=== PATIENT | female | born 1950 | race Caucasian/White ===

== ENCOUNTER → 2023-08-10 | Outpatient (CLI) | payer BC ==
--- NOTE | 2023-08-10 11:46 | BD ---
EXAMINATION TYPE: Axial Bone Density DATE OF EXAM: 08/10/2023 CLINICAL HISTORY: 73 years old Female. ICD-10 CODE: Z78.0 ASYMPTOMATIC MENOPAUSAL WITHOUT HRT Height: 61 Weight: 167 FRAX RISK QUESTIONS: Alcohol (3 or more units per day): no Family History (Parent hip fracture): no Glucocorticoids (More than 3mos): no (Ex: prednisone, prednisolone, methylprednisolone, dexamethasone, and hydrocortisone). History of Fracture in Adulthood: yes Secondary Osteoporosis: 1. Type 1 Diabetes: no 2. Hyperthyroidism: no 3. Menopause before 45: no 4. Malnutrition: no 5. Chronic liver disease: no Rheumatoid Arthritis: no Current Tobacco Use: no RISK FACTORS HISTORY OF: History of Wrist Fracture: right When: 2017 Surgery to Spine/Hip(right/left)/Wrist (right/left): right wrist When: 2017 EXAM MEASUREMENTS: Bone mineral densitometry was performed using the Plaid System. Bone mineral density as measured about the Lumbar spine is: ----- L1-L4(G/cm2): 1.106 T Score Values are as follows: ----- L1: 0.1 ----- L2: -1.3 ----- L3: -0.5 ----- L4: -0.8 ----- L1-L4: -0.6 Z Score Values are as follows: ----- L1: 1.4 ----- L2: 0.0 ----- L3: 0.8 ----- L4: 0.6 ----- L1-L4: 0.7 Bone mineral density : baseline Bone mineral density about the R hip (g/cm2): 0.922 Bone mineral density about the L hip (g/cm2): 0.841 T Score values are as follows: -----R Neck: -1.7 -----L Neck: -1.8 -----R Total: -0.7 -----L Total: -1.3 Z Score values are as follows: -----R Neck: -0.1 -----L Neck: -0.3 -----R Total: 0.6 -----L Total: 0.0 Bone mineral density : baseline FRAX%s: The graph provided illustrates a 17.4% chance for a major osteoporotic fx and a 3.2% chance f or the hips probability for fx in 10 years time. IMPRESSION: Osteopenia (T Score between -2.5 and -1). There is slightly increased risk of fracture and the patient may be considered for treatment. Re-Screen 2-5 years. NOTE: T-SCORE=SD OF THE YOUNG ADULT MEAN.
--- NOTE | 2023-08-11 14:20 | MM ---
Reason for Exam: Screening (asymptomatic). Patient History: Menarche at age 13. First Full-Term at age 27. Hysterectomy at age 50. Postmenopausal. Risk Values: Ada 5 year model risk: 2.0%. NCI Lifetime model risk: 5.1%. Prior Study Comparison: No prior studies available for comparison. Tissue Density: The breasts are heterogeneously dense, which may obscure small masses. Findings: Analyzed By CAD. There is no suspicious group of microcalcifications or new suspicious mass in either breast. Overall Assessment: Benign, BI-RAD 2 Management: Screening Mammogram of both breasts in 1 year. . Patient should continue monthly self-breast exams. A clinical breast exam by your physician is recommended on an annual basis. This exam should not preclude additional follow-up of suspicious palpable abnormalities. Note on Ada scores and lifetime risk: 1. A Ada score greater than 3% is considered moderate risk. If this is the case, consider specialist referral to assess eligibility for a risk reducing agent. 2. If overall lifetime risk for the development of breast cancer is 20% or higher, the patient may qualify for future screening with alternating mammogram and breast MRI. Electronically signed and approved by: Bebeto Ortiz M.D. Radiologis
== END | disposition home or self-care (01) ==
LOC: RADMAMWWP 07:37
PROVIDERS: ATTEND Family Medicine
DX: Z12.31 Encounter for screening mammogram for malignant neoplasm of breast (principal); M85.89 Other specified disorders of bone density and structure, multiple sites; Z78.0 Asymptomatic menopausal state
CPT/HCPCS: 77063; 77067; 77080

== ENCOUNTER → 2023-08-19 | Outpatient (CLI) | payer BC ==
--- NOTE | 2023-08-20 06:48 | CA ---
Transthoracic Echo Report Name: Libby Wilkinson Age: 73 Gender: F : 1950 Exam Date: 08/19/2023 13:00 Exam Location: [facility] Ht (in): 61 Wt (lb): 160 Ordering Physician: Dia, Physician Attending/Referring Phys: Braeden Valentin Fur Dry Cleaner Procedure CPT: Indications: I25.10 ATHSCL HEART DISEASE OF [place] CORONARY ART Cardiac Hx: Technical Quality: Fair Contrast 1: Total Dose (mL): Contrast 2: Total Dose (mL): MEASUREMENTS (Male / Female) Normal Values 2D ECHO LV Diastolic Diameter PLAX 4.1 cm 4.2 - 5.9 / 3.9 - 5.3 cm LV Systolic Diameter PLAX 2.9 cm IVS Diastolic Thickness 1.1 cm 0.6 - 1.0 / 0.6 - 0.9 cm LVPW Diastolic Thickness 0.9 cm 0.6 - 1.0 / 0.6 - 0.9 cm LV Relative Wall Thickness 0.5 RV Internal Dim ED PLAX 2.7 cm LV Diastolic Volume MOD BP 63.1 cm??? 67 - 155 / 56 - 104 cm??? LV Systolic Volume MOD BP 40.1 cm??? 22 - 58 / 19 - 49 cm??? LV Ejection Fraction MOD BP 36.5 % >= 55 % LV Cardiac Index MOD BP 884.7 cm???/min???m??? LV Diastolic Volume MOD 4C 72.4 cm??? LV Systolic Volume MOD 4C 72.3 cm??? LV Ejection Fraction MOD 4C 0.0 % LV Cardiac Index MOD 4C 1.0 cm???/min???m??? LV Diastolic Length 4C 6.5 cm LV Systolic Length 4C 6.4 cm LV Diastolic Volume MOD 2C 42.9 cm??? LV Systolic Volume MOD 2C 31.9 cm??? LV Ejection Fraction MOD 2C 25.7 % LV Cardiac Index MOD 2C 423.8 cm???/min???m??? LV Diastolic Length 2C 5.0 cm LV Systolic Length 2C 4.9 cm M-MODE Aortic Root Diameter MM 3.0 cm LA Systolic Diameter MM 3.8 cm LA Ao Ratio MM 1.3 AV Cusp Separation MM 1.7 cm DOPPLER AV Peak Velocity 143.5 cm/s AV Peak Gradient 8.2 mmHg AV Mean Velocity 98.3 cm/s AV Mean Gradient 4.3 mmHg AV Velocity Time Integral 32.2 cm AI Peak Velocity 446.1 cm/s AI Peak Gradient 79.6 mmHg AI Pressure Half Time 263.1 ms LVOT Peak Velocity 130.5 cm/s LVOT Peak Gradient 6.8 mmHg LVOT Velocity Time Integral 28.3 cm MV Area PHT 5.0 cm??? Mitral E Point Velocity 99.0 cm/s Mitral A Point Velocity 145.1 cm/s Mitral E to A Ratio 0.7 MV Deceleration Time 152.2 ms MV E' Velocity 4.5 cm/s Mitral E to MV E' Ratio 21.8 TR Peak Velocity 182.8 cm/s TR Peak Gradient 13.4 mmHg Right Ventricular Systolic Press 17.5 mmHg FINDINGS Left Ventricle Mildly increased left ventricular wall thickness. Moderately decreased left ventricular ejection fraction. Mild left ventricular dilatation. Apicaal septal, apical anteriorand apical lateral golden are hypokinetic. Left ventricular ejection fraction is estimated at 35-40%. Grade 1 diastolic dysfunction. Right Ventricle Normal right ventricular size and function. Right ventricular systolic pressure within normal limits. Right Atrium Normal right atrial size. Left Atrium Mildly increased left atrial area. Mitral Valve Structurally normal mitral valve. Mitral valve thickened. Mild mitral annular calcification. Xtxn-mq-trhnivec mitral regurgitation. Aortic Valve Trileaflet aortic valve. No aortic stenosis. Mild aortic regurgitation. Tricuspid Valve Structurally normal tricuspid valve. Mild tricuspid regurgitation. Pulmonic Valve Structurally normal pulmonic valve. Trace pulmonic regurgitation. Pericardium No pericardial effusion. Aorta Normal size aortic root and proximal ascending aorta. CONCLUSIONS Impaired LV function with EF between 35-40% with apical and septal hypokinesia [id number]-vp-rpzhmvun mitral regurgitation Previewed by: Dr. Arsenio Owens MD (Electronically Signed) Final Date: 20 Aug 2023 06:47
== END | disposition home or self-care (01) ==
LOC: RADECHMAIN 12:48
PROVIDERS: ATTEND Internal Medicine
DX: I34.0 Nonrheumatic mitral (valve) insufficiency (principal); I51.89 Other ill-defined heart diseases; I25.10 Atherosclerotic heart disease of native coronary artery without angina pectoris; I25.5 Ischemic cardiomyopathy
CPT/HCPCS: 93306

== ENCOUNTER 2024-01-09 13:11 | Emergency (ER) | payer BC ==
[2024-01-09 13:20] VITALS: TEMP 97.6
[2024-01-09] MEDS: MORPHINE SULFATE 4 MG/ML SYRINGE IM STA (13:42)
--- NOTE | 2024-01-09 14:12 | XR ---
EXAMINATION TYPE: XR wrist complete LT DATE OF EXAM: 01/09/2024 2:02 PM CLINICAL INDICATION: Female, 73 years old with history of fall, arm pain; [facility] COMPARISON: None TECHNIQUE: XR wrist complete LT; examined in the Frontal, navicular, lateral, and oblique. FINDINGS/IMPRESSION: 1. Comminuted intra-articular distal radius fracture with dorsal angulation and shortening. There is associated soft tissue swelling. 2. Indeterminate injury to the ulnar styloid process suggested. Correlate with point tenderness. 3. Moderate to severe degeneration changes of the carpal metacarpal joint. [facility], , 01/09/2024 2:09 PM
--- NOTE | 2024-01-09 14:13 | XR ---
EXAMINATION TYPE: XR humerus LT DATE OF EXAM: 01/09/2024 2:02 PM CLINICAL INDICATION: Female, 73 years old with history of fall, arm pain; H COMPARISON: None TECHNIQUE: XR humerus LT examined in frontal and lateral projections. FINDINGS: No evidence of acute osseous pathology, joint dislocation, or soft tissue swelling. The rem aining portions of the visualized chest are unremarkable. IMPRESSION: No acute osseous pathology. [facility], , 01/09/2024 2:10 PM
--- NOTE | 2024-01-09 14:20 | XR ---
EXAMINATION TYPE: XR elbow complete LT DATE OF EXAM: 01/09/2024 2:02 PM CLINICAL INDICATION: Female, 73 years old with history of fall, arm pain; H COMPARISON: Humerus radiograph same day. TECHNIQUE: XR elbow complete LT; elbow was examined in AP, lateral, and oblique projections. FINDINGS/IMPRESSION: Posterior dislocation of the ulna better appreciated on elbow radiographs. No fracture definitely vis ualized. Consider CT if there is concern for fracture. [facility], , 01/09/2024 2:18 PM
[2024-01-09] MEDS: PROPOFOL 10 MG/ML 20 ML VIAL IV ONE ×2 (15:29)
[2024-01-09 16:08] VITALS: RESP 18
--- NOTE | 2024-01-09 16:08 | XR ---
EXAMINATION TYPE: XR wrist limited LT DATE OF EXAM: 01/09/2024 4:00 PM CLINICAL INDICATION: Female, 73 years old with history of post reduction; [facility] COMPARISON: Same day TECHNIQUE: XR wrist limited LT; examined in the Frontal, navicular, lateral, and oblique. FINDINGS/IMPRESSION: Comminuted fractures of the distal radius remains present with improved anatomic alignment remains sh ortening with some displacement. [facility], , 01/09/2024 4:06 PM
--- NOTE | 2024-01-09 16:09 | XR ---
EXAMINATION TYPE: XR elbow limited LT DATE OF EXAM: 01/09/2024 4:00 PM CLINICAL INDICATION: Female, 73 years old with history of post reduction; COMPARISON: 01/09/2024 TECHNIQUE: XR elbow limited LT; lateral view of the elbow. FINDINGS/IMPRESSION: Improved anatomic alignment of elbow dislocation. No fractures definitively visualized. [facility], , 01/09/2024 4:07 PM
--- NOTE | 2024-01-09 16:17 | ED ---
Upper Extremity HPI - General Chief Complaint: Extremity Injury, Upper Stated Complaint: fall/L wrist injury Time Seen by Provider: 01/09/24 13:20 Source: patient Mode of arrival: ambulatory Limitations: no limitations - History of Present Illness Initial Comments: 73-year-old female presents emergency department after a fall. Patient states that she was cutting grass. She was by a retaining wall that separates her yard from the neighbors. She did not realize how close she was to and fell over backwards on an outstretched left hand. She is right-hand dominant. Patient could not bend her elbow and had deformity to her left wrist. She was able to flag down her who brought her immediately to the hospital. No pain medications were taken. She denies any numbness or tingling in her fingers. She denies any shoulder pain. Patient did not hit her head. Denies neck or back pain. No loss of consciousness. Patient was able to ambulate without difficulty. No other alleviating, precipitating or modifying factors - Related Data Previous Rx's Medication Instructions Recorded HYDROcodone/APAP 5-325MG [Anthony 1 tab PO Q4HR PRN 3 Days #18 tab 01/09/24 5-325] Allergies Allergy/AdvReac Type Severity Reaction Status Date / Time Penicillins AdvReac Rash/Hives Verified 01/09/24 13:20 Review of Systems ROS Statement: Those systems with pertinent positive or pertinent negative responses have been documented in the HPI. ROS Other: All systems not noted in ROS Statement are negative. Past Medical History Past Medical History: CVA/TIA, Pneumonia Past Surgical History: Heart Catheterization With Stent Smoking Status: Never smoker Past Alcohol Use History: None Reported Past Drug Use History: None Reported General Exam Limitations: no limitations General appearance: alert, in no apparent distress Head exam: Present: atraumatic, normocephalic, normal inspection Eye exam: Present: normal appearance, PERRL, EOMI. Absent: scleral icterus, conjunctival injection, periorbital swelling ENT exam: Present: normal exam, mucous membranes moist Neck exam: Present: normal inspection. Absent: tenderness, meningismus, lymphadenopathy Respiratory exam: Present: normal lung sounds bilaterally. Absent: respiratory distress, wheezes, rales, rhonchi, stridor Cardiovascular Exam: Present: regular rate, normal rhythm, normal heart sounds. Absent: systolic murmur, diastolic murmur, rubs, gallop, clicks GI/Abdominal exam: Present: soft, normal bowel sounds. Absent: distended, tenderness, guarding, rebound, rigid Extremities exam: Present: tenderness (To palpation of the left elbow. Patient cannot move the left elbow. Patient has obvious deformity to the left wrist. 2+ radial and ulnar pulses. Intact sensation in the median, radial, ulnar nerve distribution. Intact motor function in the hand), normal capillary refill. Absent: pedal edema, joint swelling, calf tenderness Back exam: Present: normal inspection Neurological exam: Present: alert, oriented X3, CN II-XII intact Psychiatric exam: Present: normal affect, normal mood Skin exam: Present: warm, dry, intact, normal color. Absent: rash Course Vital Signs 01/09/24 01/09/24 01/09/24 13:16 15:37 15:42 Temperature 97.6 F Pulse Rate 67 72 63 Respiratory 18 22 18 Rate Blood Pressure 114/55 171/73 168/77 O2 Sat by Pulse 98 97 98 Oximetry 01/09/24 01/09/24 01/09/24 15:45 15:50 15:55 Temperature Pulse Rate 75 69 68 Respiratory 18 18 20 Rate Blood Pressure 150/78 155/73 153/75 O2 Sat by Pulse 84 L 95 95 Oximetry 01/09/24 01/09/24 01/09/24 16:00 16:05 16:55 Temperature Pulse Rate 68 64 69 Respiratory 18 18 18 Rate Blood Pressure 150/78 155/76 160/74 O2 Sat by Pulse 95 97 96 Oximetry Procedures - Devine Protocol (Time Out) Procedure Performed:: wrist reduction Performing Provider: Dayanna Yip Nurse: Sandra Barfield Patient Identification (2 identifiers required): Chart, Verbal, Arm Band, Name, Birthdate Patient/Legal Glass Ribbon Machine Operator has Confirmed: Identity, Site, Procedure, Consent Site: L elbow forearm Site Marked: Yes Site Verified With Patient/Guardian: Yes Final Confirmation: Procedure, Site, Laterality, Patient Position, Radiographs, Special Equipment, Confirmed w/Provider - Orthopedic Fracture Reduction Fracture #1 Consent Obtained: verbal consent, written consent Side: left Fracture Reduction Location: radius, ulna Analgesia: procedural sedation Technique: direct manipulation Post Reduction X-rays Demonstrate: acceptable reduction Post-Reduction Neuro Exam: intact Post-Reduction Vascular Exam: intact Splint Applied: Yes Patient Tolerated Procedure: well, no complications - Orthopedic Joint Reduction Joint #1 Consent Obtained: verbal consent, written consent Side: left Joint Reduction Location: elbow Analgesia: procedural sedation Technique Used: traction/counter-traction, direct manipulation Post-Reduction Neuro Exam: intact Post-Reduction Vascular Exam: intact Post Reduction X-Ray Obtained: Yes Post Reduction X-Ray Results: reduced Splint Applied: Yes Patient Tolerated Procedure: well, no complications - Orthopedic Splinting/Casting Injury #1 Side: left Upper Extremity Injury Location: short arm Upper Extremity Immobilizer: sugar tong splint, Oumar wrap, synthetic pre-padded splint - Procedural Sedation *Procedural Sedation Start Time: 15:38 *Procedural Sedation Stop Time: 16:10 *Risks,benefits, and alternative therapies discussed?: Yes *Patient indicates understanding of risk/benefit discussion?: Yes *Indications: fracture/dislocation reduction *Previous Adverse Reaction to Anesthesia/Sedation?: No * Testing Complete?: No Reason Test Not Complete:: Age > 60 *ASA Class: II *Mallampati Airway Score: 1 *Time of Last PO Intake: 12:00 Preparation: site monitor applied, pulse oximeter, capnometry used, supplemental O2 applied, reversal agents at bedside, suction/airway equipment at bedside IV Propofol Dose (mgs): 90 Complications: none Patient Tolerated Procedure: well, no complications Medical Decision Making - Medical Decision Making Was pt. sent in by a medical professional or institution (RACHAEL Keenan, MULTIMEDIA INSTRUCTIONAL DESIGNER, urgent care, hospital, or jail...) When possible be specific @ -No Did you speak to anyone other than the patient for history (EMS, parent, family, police, friend...)? What history was obtained from this source @ -Spoke with for history Did you review nursing and triage notes (agree or disagree)? Why? @ -I reviewed and agree with nursing and triage notes Were old charts reviewed (outside hosp., previous admission, EMS record, old EKG, old radiological studies, urgent care reports/EKG's, jail records)? Report findings @ -No old charts were reviewed Differential Diagnosis (chest pain, altered mental status, abdominal pain women, abdominal pain men, vaginal bleeding, weakness, fever, dyspnea, syncope, headache, dizziness, GI bleed, back pain, seizure, CVA, palpatations, mental health, musculoskeletal)? @ -Fracture, strain, sprain EKG interpreted by me (3pts min.). @ -Not done X-rays interpreted by me (1pt min.). @ -Yes and demonstrates left elbow dislocation and left distal radius comminuted fracture CT interpreted by me (1pt min.). @ -None done U/S interpreted by me (1pt. min.). @ -None done What testing was considered but not performed or refused? (CT, X-rays, U/S, labs)? Why? @ -None What meds were considered but not given or refused? Why? @ -None Did you discuss the management of the patient with other professionals (professionals i.e. , PA, MULTIMEDIA INSTRUCTIONAL DESIGNER, lab, RT, psych nurse, social services analyst, weaver needle loom, teacher, dog license officer supervisor, case management coordinator)? Give summary @ -No Was smoking cessation discussed for >3mins.? @ -No Was critical care preformed (if so, how long)? @ -No Were there social determinants of health that impacted care today? How? (Homelessness, low income, unemployed, alcoholism, drug addiction, transportation, low edu. Level, literacy, decrease access to med. care, group home, rehab)? @ -No Was there de-escalation of care discussed even if they declined (Discuss DNR or withdrawal of care, Hospice)? DNR status @ -No What co-morbidities impacted this encounter? (DM, HTN, Smoking, COPD, CAD, Cancer, CVA, ARF, Chemo, Hep., AIDS, mental health diagnosis, sleep apnea, morbid obesity)? @ -None Was patient admitted / discharged? Hospital course, mention meds given and route, prescriptions, significant lab abnormalities, going to OR and other pertinent info. @ -Upon arrival patient seen and evaluated in room 32. Thorough history and physical exam was performed. Patient is given morphine for pain control. X- rays are completed which demonstrate elbow dislocation and distal radius fracture. Patient does signed consent for procedural sedation. Patient is administered propofol. Elbow was reduced. Radius fracture is reduced. Patient placed in sugar-tong splint. Patient will be discharged with pain medications. She is instructed to call and make an appointment with the orthopedic office for further management. Return to the emergency department for any new or worsening symptoms. Patient agreeable to the plan was discharged in stable condition Undiagnosed new problem with uncertain prognosis? @ -No Drug Therapy requiring intensive monitoring for toxicity (Heparin, Nitro, Insulin, Cardizem)? @ -No Were any procedures done? @ -No Diagnosis/symptom? @ -Acute fall, acute left elbow dislocation, acute left distal radius fracture Acute, or Chronic, or Acute on Chronic? @ -Acute Uncomplicated (without systemic symptoms) or Complicated (systemic symptoms)? @ -Complicated Side effects of treatment? @ -No Exacerbation, Progression, or Severe Exacerbation? @ -No Poses a threat to life or bodily function? How? (Chest pain, USA, CT, pneumonia, PE, COPD, DKA, ARF, appy, cholecystitis, CVA, Diverticulitis, Homicidal, Suicidal, threat to staff... and all critical care pts) @ -No Disposition Clinical Impression: Radius fracture, Ulnar fracture, Elbow dislocation Disposition: HOME SELF-CARE Condition: Stable Instructions (If sedation given, give patient instructions): Elbow Dislocation (ED), Wrist Fracture in Adults (ED), Procedural Sedation (ED) Additional Instructions: Please follow-up with the orthopedic office for further management of your injuries. Take the pain medications as needed. Return for any new or worsening symptoms Prescriptions: HYDROcodone/APAP 5-325MG [Anthony 5-325] 1 tab PO Q4HR PRN 3 Days #18 tab PRN Reason: Pain Is patient prescribed a controlled substance at d/c from ED?: Yes When asked, does pt state using other controlled substances?: No If prescribed controlled substance>3 days was MAPS reviewed?: Prescribed <3 Days If opioid is for acute pain is fill amount 7 days or less?: Yes Referrals: Shruthi Lilly MD [Primary Care Provider] - 1-2 days Gato Alanis MD [Medical Doctor] - 1-2 days Time of Disposition: 16:17
[2024-01-09 16:58] VITALS: BP 160/74; PULSE 69
== END 2024-01-09 17:06 | disposition home or self-care (01) ==
LOC: EC 13:11
CPT/HCPCS: 24600; 96372; 99284

== ENCOUNTER → 2024-01-15 | Outpatient (CLI) | payer BC ==
--- NOTE | 2024-01-15 12:55 | CT ---
EXAMINATION TYPE: CT wrist LT wo con CT DLP: 239.2 mGycm, Automated exposure control for dose reduction was used. DATE OF EXAM: 01/15/2024 12:02 PM COMPARISON: Left wrist radiographs 01/09/2024 CLINICAL INDICATION:Female, 73 years old with history of S52.572A OTH INTARTIC FRACTURE OF LOWER END OF LEF; [facility], Pain in left elbow, intraarticular fx of lower end of left radius. TECHNIQUE: Axial images were obtained of the left upper extremity without the use of IV contrast. Ad ditional coronal and sagittal reformatted images and soft tissue and bone window were obtained for re view. 3-D reconstruction was created on a separate workstation. FINDINGS: Redemonstration of acute/subacute mildly displaced comminuted distal radius fracture with i ntra-articular extension into the radiocarpal joint. There is approximately 1.1 cm of shortening. Sim ilar alignment from prior radiograph. Acute/subacute displaced fracture of the ulnar styloid process. Acute/subacute avulsion fracture involving the capitellum of the humerus. No dislocation. Elbow and wrist joint effusions demonstrated. Soft tissue tissue edema of the posterior elbow, wrist and hand. No significant widening of the scapholunate interval. Moderate degenerative changes of the first MCP joint. IMPRESSION: 1. Acute/subacute moderately displaced comminuted distal radius fracture with intra-articular extens ion as described above. 2. Acute/subacute mildly displaced ulnar styloid process fracture. 3. Acute to subacute avulsion fracture involving the capitellum of the humerus. [facility], , 01/15/2024 12:53 PM
== END | disposition home or self-care (01) ==
LOC: RADCTMAIN 11:22
PROVIDERS: ATTEND Orthopaedic Surgery
DX: S52.572A Other intraarticular fracture of lower end of left radius, initial encounter for closed fracture

== ENCOUNTER → 2024-04-15 | Outpatient (CLI) | payer BC ==
[2024-04-15 18:27] LABS: HCT 47.1 % (37.2-46.3); HGB 14.7 g/dL (12.0-15.0); MCH 26.9 pg (27.0-32.0); MCHC 31.2 g/dL (32.0-37.0); MCV 86.1 FL (80.0-97.0); Mean Platelet Volume 10.6 FL (9.5-12.2); NRBC Per 100 WBC 0 X 10*3/uL (0.00-0.01); Platelet Count 250 X 10*3/uL (140-440); RBC 5.47 X 10*6/uL (4.10-5.20); RDW 13.7 % (11.5-14.5); WBC 6.61 X 10*3/uL (4.50-10.00)
[2024-04-15 18:35] LABS: Blood Urea Nitrogen 18.5 mg/dL (9.0-27.0); Carbon Dioxide 25.2 mmol/L (21.6-31.8); Chloride 109 mmol/L (96-109); Potassium 4.6 mmol/L (3.5-5.5); Sodium 144 mmol/L (135-145)
== END | disposition home or self-care (01) ==
LOC: LABPAT 13:14
PROVIDERS: ATTEND Internal Medicine Interventional Cardiology
DX: Z01.818 Encounter for other preprocedural examination (principal); R06.02 Shortness of breath
CPT/HCPCS: 80051; 82565; 84520; 85027

== ENCOUNTER → 2024-04-18 | Day surgery (SDC) | payer BC ==
[~2024-04-18] MED LIST: ALPRAZolam 0.25 MG TAB PO PRN; ALPRAZolam 0.5 MG TAB PO PRN; HEPARIN SODIUM,PORCINE (1 ML) 2,500 UNIT in SODIUM CHLORIDE 0.9% 250 ML IRRIGATION PRN; HEPARIN SODIUM,PORCINE 10,000 UNIT in SODIUM CHLORIDE 0.9% 1,000 ML IRRIGATION PRN; NITROGLYCERIN SL TABS 0.4 MG TAB SUBLINGUAL PRN; RX INFO: IV CONTRAST WAS GIVEN 1 EACH MISC MISCELLANE PRN; SODIUM CHLORIDE 0.9% 1,000 ML IV SCH
[2024-04-18] MEDS: IV FLUID CONTINUATION 1,000 ML IV ONE (07:35)
[2024-04-18] MEDS: SODIUM CHLORIDE 0.9% 1,000 ML in EMPTY BAG 1 BAG IV SCH (07:35)
[2024-04-18] MEDS: ASPIRIN 325 MG TAB PO STA (07:48)
[2024-04-18 07:54] VITALS: TEMP 97.3
[2024-04-18] MEDS: HEPARIN SODIUM,PORCINE 10,000 UNIT in SODIUM CHLORIDE 0.9% 1,000 ML IRRIGATION ONE (08:34)
[2024-04-18] MEDS: HEPARIN SODIUM,PORCINE (1 ML) 2,500 UNIT in SODIUM CHLORIDE 0.9% 250 ML IRRIGATION ONE (08:35)
[2024-04-18] MEDS: LIDOCAINE 1% INJ 10MG/ML (20 ML MDV) SQ ONE (08:50)
[2024-04-18] MEDS: MIDAZOLAM 2 MG/2 ML VIAL IVP ONE ×2 (08:53→09:01)
[2024-04-18] MEDS: VERAPAMIL SYRINGE (5 MG/10 ML) INTRAARTER ONE (08:57)
[2024-04-18] MEDS: fentaNYL (PF) 50 MCG/ML 2 ML AMP IVP ONE (08:57)
[2024-04-18] MEDS: HEPARIN SODIUM 1,000 UN/ML (10ML VL) IVP ONE (09:01)
[2024-04-18] MEDS: IOPAMIDOL-370 100ML BTL INJ ONE (09:12)
--- NOTE | 2024-04-18 09:14 | P.PCN ---
Date of Procedure: 04/18/24 Description of Procedure: CARDIAC CATHETERIZATION PERFORMING PHYSICIAN: Arsenio Owens MD, RPVI PROCEDURE PERFORMED: 1. Selective right and left coronary angiogram 2. Ultrasound-guided access of the right radial artery INDICATION: Cardiomyopathy in this 73-year-old female patient who underwent PCI before was performed out of the town COMPLICATION: None APPROACH: Right radial artery LEVEL OF SEDATION: Moderate with a sedation length of 14 minutes PROCEDURE DESCRIPTION: After obtaining an informed consent, the patient was brought to cardiac orthodontic laboratory technician. Local anesthesia was performed using lidocaine subcutaneously. The right radial artery was cannulated using Seldinger technique, the guidewire passed easily, following that we advanced a 5-Ecuadorean sheath dilator assembly, the wire and dilator were removed and sheath was flushed. Following that, 2 mg of verapamil along with 5000 unit heparin were given. Selective right and left coronary angiogram using a 6-Ecuadorean JR4 and JL 3.5 catheters. The procedure was completed there was no complication. SELECTIVE CORONARY ANGIOGRAM: The right coronary artery: Medium caliber vessel nondominant vessel appears to be angiographically normal Left main: Appears to be angiographically normal. The left circumflex: Large caliber vessel stented in the proximal portion and the stent appeared to have mild in-stent restenosis. Gives rise into an OM1 which has intermediate lesion appears to be in the range of 60 to 70%. The circumflex distally which is a dominant vessel has mild disease only and bifurcates into PDA and PLV branches The left anterior descending artery: The proximal LAD is stented and the stent is patent. The mid and distal LAD appears to be angiographically normal CONCLUSION: 1. 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 Intermediate to severe disease involving OM1 2. Patent stent in the proximal LAD POSTPROCEDURE MANAGEMENT: Sickle treatment Consider IFR of the OM1 if the patient remains symptomatic
[2024-04-18 18:29] VITALS: PULSE 62; RESP 16
[2024-04-18 18:30] VITALS: BP 164/73
== END ==
LOC: CATHCVL 07:07
PROVIDERS: ATTEND Internal Medicine Interventional Cardiology
DX: I42.9 Cardiomyopathy, unspecified (principal); I10 Essential (primary) hypertension; I25.10 Atherosclerotic heart disease of native coronary artery without angina pectoris; E78.5 Hyperlipidemia, unspecified; Z95.5 Presence of coronary angioplasty implant and graft; Z86.73 Personal history of transient ischemic attack (TIA), and cerebral infarction without residual deficits; Z79.82 Long term (current) use of aspirin; Z79.899 Other long term (current) drug therapy
CPT/HCPCS: 93454; 99152; C1769; C1894; J2250; J1644 ×3; J2003; J3010; Q9967

== ENCOUNTER → 2024-10-31 | Outpatient (CLI) | payer BC ==
--- NOTE | 2024-10-31 09:36 | MM ---
Reason for Exam: Screening (asymptomatic). Last mammogram was performed 1 year(s) and 3 month(s) ago. Patient History: Menarche at age 13. First Full-Term at age 27. Hysterectomy at age 50. Postmenopausal. Risk Values: Ada 5 year model risk: 2.0%. NCI Lifetime model risk: 4.8%. Prior Study Comparison: 08/10/2023 Bilateral MG 3D screening mammo w/cad, [facility]. Tissue Density: The breasts are heterogeneously dense, which may obscure small masses. Findings: Analyzed By CAD. There is no suspicious group of microcalcifications or new suspicious mass in either breast. Overall Assessment: Benign, BI-RAD 2 Management: Screening Mammogram of both breasts in 1 year. . Patient should continue monthly self-breast exams. A clinical breast exam by your physician is recommended on an annual basis. This exam should not preclude additional follow-up of suspicious palpable abnormalities. Note on Ada scores and lifetime risk: 1. A Ada score greater than 3% is considered moderate risk. If this is the case, consider specialist referral to assess eligibility for a risk reducing agent. 2. If overall lifetime risk for the development of breast cancer is 20% or higher, the patient may qualify for future screening with alternating mammogram and breast MRI. [facility], , 10/31/2024 8:50 AM. Electronically signed and approved by: Bebeto Ortiz M.D. Radiolog[facility]
== END | disposition home or self-care (01) ==
LOC: RADMAMWWP 08:15
PROVIDERS: ATTEND Family Medicine
DX: Z12.31 Encounter for screening mammogram for malignant neoplasm of breast (principal); R92.333 Mammographic heterogeneous density, bilateral breasts; Z78.0 Asymptomatic menopausal state
CPT/HCPCS: 77063; 77067